=== PATIENT | male | born 1960 ===

== ENCOUNTER 2019-01-22 10:45 | Observation (INO) | payer OTHER ==
[2019-01-22] MEDS ORDERED: Sodium Chloride 0.9% 2.5 ML Syringe FLUSH PRN ×2 (10:47→10:48)
[2019-01-22] MEDS ORDERED: Sodium Chloride 0.9% 10 ML Syringe FLUSH PRN ×2 (10:47→10:48)
[2019-01-22] MEDS ORDERED: Sodium Chloride 0.9% 10 ML SDV IV PRN (10:48)
--- NOTE | 2019-01-22 10:57 | EDM.PDOC ---
<AntonioCristina Agarwal - Last Filed: 01/22/19 11:35> ED HPI GENERAL MEDICAL PROBLEM - General Chief Complaint: Neurological Problem Stated Complaint: STROKE CODE Time Seen by Provider: 01/22/19 10:47 - History of Present Illness INITIAL COMMENTS - FREE TEXT/NARRATIVE: This is Dr. Alvarez dictating an addendum note as I am the supervising physician on this case and I have been directly involved in this patient's care plan. I agree with history and physical as above and his stroke scale is only a 1. His time of onset is unclear and since he has been here his confusion has improved. Neurology was involved, Dr. Thomas, who will be on consult and does re-with us that this patient is not a candidate for TPA for multiple reasons including unknown time of onset/last well time, improvement of symptoms , and non-focality of his symptoms and more generalized confusional state. She knew to monitor his workup and plan on admission to the hospitalist. - Related Data Allergies Allergy/AdvReac Type Severity Reaction Status Date / Time No Known Allergies Allergy Verified 01/22/19 11:28 Home Meds: Home Meds Aspirin 1 tab PO DAILY 01/22/19 [History] Course - Vital Signs Last Recorded V/S: Last Vital Signs Temp 97.3 F 01/22/19 10:45 Pulse 65 01/22/19 10:49 Resp 18 01/22/19 10:49 BP 182/94 H 01/22/19 10:49 Pulse Ox 98 01/22/19 10:49 - Orders/Labs/Meds Orders: Active Orders 24 hr Category Date Time Status Admission Status [Patient Status] [ADT] Stat ADT 01/22/19 12:42 Ordered Assess Neurological Status [RC] ASDIRECTED Care 01/22/19 10:49 Active Bedrest [RC] ASDIRECTED Care 01/22/19 10:49 Active Blood Glucose Check, Bedside [RC] ONETIME Care 01/22/19 10:47 Active Cardiac Monitoring [RC] . DIRECTED Care 01/22/19 10:47 Active EKG Documentation Completion [RC] STAT Care 01/22/19 10:47 Active Height and Weight [RC] UPON Care 01/22/19 10:49 Active Initiate Acute Stroke Protocol [RC] STAT Care 01/22/19 10:49 Active NIH Stroke Scale [RC] ASDIRECTED Care 01/22/19 10:49 Active Nursing Bedside Swallow Screen [RC] ASDIRECTED Care 01/22/19 10:49 Active Oxygen Therapy [RC] ASDIRECTED Care 01/22/19 10:49 Active Oxygen Therapy, ED [RC] ASDIRECTED Care 01/22/19 10:47 Active Pulse Oximetry [RC] ASDIRECTED Care 01/22/19 10:47 Active Stroke Education, General [RC] Click to Edit Care 01/22/19 10:49 Active Vital Signs [RC] Q15M Care 01/22/19 10:49 Active CULTURE BLOOD [BC] Stat Lab 01/22/19 11:48 Received CULTURE BLOOD [BC] Stat Lab 01/22/19 11:55 Received DRUG SCREEN, URINE [URCHEM] Stat Lab 01/22/19 10:50 Ordered UA RFX TOMMY AND CULT IF INDIC [URIN] Stat Lab 01/22/19 10:48 Ordered Sodium Chloride 0.9% [Normal Saline] Med 01/22/19 10:48 Active 10 ml IV ASDIRECTED PRN Sodium Chloride 0.9% [Saline Flush] Med 01/22/19 10:47 Active 10 ml FLUSH ASDIRECTED PRN Sodium Chloride 0.9% [Saline Flush] Med 01/22/19 10:48 Active 10 ml FLUSH ASDIRECTED PRN Sodium Chloride 0.9% [Saline Flush] Med 01/22/19 10:47 Active 2.5 ml FLUSH ASDIRECTED PRN Sodium Chloride 0.9% [Saline Flush] Med 01/22/19 10:48 Active 2.5 ml FLUSH ASDIRECTED PRN Blood Culture x2 Reflex Set [OM.PC] Stat Oth 01/22/19 10:48 Ordered Peripheral IV Insertion Adult [OM.PC] Stat Oth 01/22/19 10:49 Ordered Peripheral IV Insertion Adult [OM.PC] Stat Oth 01/22/19 10:49 Ordered Saline Lock Insert [OM.PC] Stat Oth 01/22/19 10:47 Ordered Medication Orders Sodium Chloride (Saline Flush) 10 ml FLUSH ASDIRECTED PRN PRN Reason: Keep Vein Open Sodium Chloride (Saline Flush) 2.5 ml FLUSH ASDIRECTED PRN PRN Reason: Keep Vein Open Last Admin: 01/22/19 12:21 Dose: 2.5 ml Sodium Chloride (Saline Flush) 10 ml FLUSH ASDIRECTED PRN PRN Reason: Keep Vein Open Sodium Chloride (Saline Flush) 2.5 ml FLUSH ASDIRECTED PRN PRN Reason: Keep Vein Open Last Admin: 01/22/19 12:21 Dose: 2.5 ml Sodium Chloride (Normal Saline) 10 ml IV ASDIRECTED PRN PRN Reason: IV Use Labs: Laboratory Tests 01/22/19 01/22/19 01/22/19 Range/Units 11:11 11:11 11:11 WBC 6.62 (4.0-11.0) K/uL RBC 4.87 (4.50-5.90) M/uL Hgb 14.3 (13.0-17.0) g/dL Hct 41.0 (38.0-50.0) % MCV 84.2 (80.0-98.0) fL MCH 29.4 (27.0-32.0) pg MCHC 34.9 (31.0-37.0) g/dL RDW Std Deviation 41.8 (28.0-62.0) fl RDW Coeff of Noman 14 (11.0-15.0) % Plt Count 218 (150-400) K/uL MPV 9.80 (7.40-12.00) fL Neut % (Auto) 49.1 (48.0-80.0) % Lymph % (Auto) 34.6 (16.0-40.0) % [place] % (Auto) 8.9 (0.0-15.0) % Eos % (Auto) 7.1 H (0.0-7.0) % Baso % (Auto) 0.3 (0.0-1.5) % Neut # (Auto) 3.3 (1.4-5.7) K/uL Lymph # (Auto) 2.3 (0.6-2.4) K/uL [place] # (Auto) 0.6 (0.0-0.8) K/uL Eos # (Auto) 0.5 (0.0-0.7) K/uL Baso # (Auto) 0.0 (0.0-0.1) K/uL INR 0.97 APTT 23.7 (18.6-31.3) SEC Lactate 1.5 (0.20-2.00) mmol/L Sodium (136-148) mmol/L Potassium (3.5-5.1) mmol/L Chloride (98-107) mmol/L Carbon Dioxide (21.0-32.0) mmol/L BUN (7.0-18.0) mg/dL Creatinine (0.8-1.3) mg/dL Est Cr Clr Drug Dosing Estimated GFR (MDRD) ml/min Glucose (74-106) mg/dL Calcium (8.5-10.1) mg/dL Total Bilirubin (0.2-1.0) mg/dL AST (15-37) IU/L ALT (14-63) IU/L Alkaline Phosphatase (46-116) U/L Ammonia (19-54) ug/dL Troponin I (0.000-0.056) ng/mL Total Protein (6.4-8.2) g/dL Albumin (3.4-5.0) g/dL Globulin (2.6-4.0) g/dL Albumin/Globulin Ratio (0.9-1.6) Lipase (73-393) U/L TSH 3rd Generation (0.36-3.74) uIU/mL Ethyl Alcohol mg/dL 01/22/19 01/22/19 01/22/19 Range/Units 11:11 11:11 11:11 WBC (4.0-11.0) K/uL RBC (4.50-5.90) M/uL Hgb (13.0-17.0) g/dL Hct (38.0-50.0) % MCV (80.0-98.0) fL MCH (27.0-32.0) pg MCHC (31.0-37.0) g/dL RDW Std Deviation (28.0-62.0) fl RDW Coeff of Noman (11.0-15.0) % Plt Count (150-400) K/uL MPV (7.40-12.00) fL Neut % (Auto) (48.0-80.0) % Lymph % (Auto) (16.0-40.0) % [place] % (Auto) (0.0-15.0) % Eos % (Auto) (0.0-7.0) % Baso % (Auto) (0.0-1.5) % Neut # (Auto) (1.4-5.7) K/uL Lymph # (Auto) (0.6-2.4) K/uL [place] # (Auto) (0.0-0.8) K/uL Eos # (Auto) (0.0-0.7) K/uL Baso # (Auto) (0.0-0.1) K/uL INR APTT (18.6-31.3) SEC Lactate (0.20-2.00) mmol/L Sodium 140 (136-148) mmol/L Potassium 3.6 (3.5-5.1) mmol/L Chloride 105 (98-107) mmol/L Carbon Dioxide 24.5 (21.0-32.0) mmol/L BUN 14 (7.0-18.0) mg/dL Creatinine 0.9 (0.8-1.3) mg/dL Est Cr Clr Drug Dosing TNP Estimated GFR (MDRD) > 60.0 ml/min Glucose 101 (74-106) mg/dL Calcium 8.4 L (8.5-10.1) mg/dL Total Bilirubin 0.2 (0.2-1.0) mg/dL AST 23 (15-37) IU/L ALT 23 (14-63) IU/L Alkaline Phosphatase 102 (46-116) U/L Ammonia 126 H (19-54) ug/dL Troponin I < 0.050 (0.000-0.056) ng/mL Total Protein 7.8 (6.4-8.2) g/dL Albumin 4.0 (3.4-5.0) g/dL Globulin 3.8 (2.6-4.0) g/dL Albumin/Globulin Ratio 1.1 (0.9-1.6) Lipase 80 (73-393) U/L TSH 3rd Generation 1.07 (0.36-3.74) uIU/mL Ethyl Alcohol < 3.0 mg/dL Meds: Medications Generic Name Dose Route Start Last Admin Trade Name Freq PRN Reason Stop Dose Admin Sodium Chloride 10 ml 01/22/19 10:47 Saline Flush FLUSH ASDIRECTED PRN Keep Vein Open Sodium Chloride 2.5 ml 01/22/19 10:47 01/22/19 12:21 Saline Flush FLUSH 2.5 ml ASDIRECTED PRN Administration Keep Vein Open Sodium Chloride 10 ml 01/22/19 10:48 Saline Flush FLUSH ASDIRECTED PRN Keep Vein Open Sodium Chloride 2.5 ml 01/22/19 10:48 01/22/19 12:21 Saline Flush FLUSH 2.5 ml ASDIRECTED PRN Administration Keep Vein Open Sodium Chloride 10 ml 01/22/19 10:48 Normal Saline IV ASDIRECTED PRN IV Use Discontinued Medications Generic Name Dose Route Start Last Admin Trade Name Fam PRN Reason Stop Dose Admin Aspirin 324 mg 01/22/19 11:44 01/22/19 12:20 Aspirin PO 01/22/19 11:45 324 mg ONETIME ONE Administration Departure - Departure Disposition: Refer to Observation Clinical Impression: Increased ammonia level Altered mental status Qualifiers: Altered mental status type: unspecified Qualified Code(s): R41.82 - Altered mental status, unspecified Hypertension Qualifiers: Hypertension type: unspecified Qualified Code(s): I10 - Essential (primary) hypertension - Discharge Information Referrals: PCP,None [Primary Care Provider] - Forms: ED Department Discharge - My Orders Last 24 Hours: My Active Orders 01/22/19 10:48 UA RFX TOMMY AND CULT IF INDIC [URIN] Stat Sodium Chloride 0.9% [Normal Saline] 10 ml IV ASDIRECTED PRN Sodium Chloride 0.9% [Saline Flush] 10 ml FLUSH ASDIRECTED PRN Sodium Chloride 0.9% [Saline Flush] 2.5 ml FLUSH ASDIRECTED PRN Blood Culture x2 Reflex Set [OM.PC] Stat 01/22/19 10:49 Assess Neurological Status [RC] ASDIRECTED Bedrest [RC] ASDIRECTED Height and Weight [RC] UPON Initiate Acute Stroke Protocol [RC] STAT NIH Stroke Scale [RC] ASDIRECTED Nursing Bedside Swallow Screen [RC] ASDIRECTED Oxygen Therapy [RC] ASDIRECTED Stroke Education, General [RC] Click to Edit Vital Signs [RC] Q15M Peripheral IV Insertion Adult [OM.PC] Stat Peripheral IV Insertion Adult [OM.PC] Stat 01/22/19 10:50 DRUG SCREEN, URINE [URCHEM] Stat 01/22/19 11:48 CULTURE BLOOD [BC] Stat 01/22/19 11:55 CULTURE BLOOD [BC] Stat 01/22/19 12:42 Admission Status [Patient Status] [ADT] Stat - Assessment/Plan Last 24 Hours: My Active Orders 01/22/19 10:48 UA RFX TOMMY AND CULT IF INDIC [URIN] Stat Sodium Chloride 0.9% [Normal Saline] 10 ml IV ASDIRECTED PRN Sodium Chloride 0.9% [Saline Flush] 10 ml FLUSH ASDIRECTED PRN Sodium Chloride 0.9% [Saline Flush] 2.5 ml FLUSH ASDIRECTED PRN Blood Culture x2 Reflex Set [OM.PC] Stat 01/22/19 10:49 Assess Neurological Status [RC] ASDIRECTED Bedrest [RC] ASDIRECTED Height and Weight [RC] UPON Initiate Acute Stroke Protocol [RC] STAT NIH Stroke Scale [RC] ASDIRECTED Nursing Bedside Swallow Screen [RC] ASDIRECTED Oxygen Therapy [RC] ASDIRECTED Stroke Education, General [RC] Click to Edit Vital Signs [RC] Q15M Peripheral IV Insertion Adult [OM.PC] Stat Peripheral IV Insertion Adult [OM.PC] Stat 01/22/19 10:50 DRUG SCREEN, URINE [URCHEM] Stat 01/22/19 11:48 CULTURE BLOOD [BC] Stat 01/22/19 11:55 CULTURE BLOOD [BC] Stat 01/22/19 12:42 Admission Status [Patient Status] [ADT] Stat <AdánSissy - Last Filed: 01/22/19 12:45> ED HPI GENERAL MEDICAL PROBLEM - General Source of Information: Reports: Patient, Other (co worker) History Limitations: Reports: No Limitations - History of Present Illness INITIAL COMMENTS - FREE TEXT/NARRATIVE: HISTORY AND PHYSICAL: History of present illness: Patient is a 58-year-old male presents to the ED today with his co-worker with concern of confusion. Patient's coworker states that patient did not show up for work this morning which was unusual for him so they had called patient. Coworker states that at that time he said he wasn't feeling well so was coming to be evaluated in the ED. Coworker states he called back a little while later to see how things were doing and states that patient was confused and in the parking lot of the hospital and unsure where he was or why he was there.Upon arrival to the ED, patient is confused and unsure why he is here. Review of systems: As per history of present illness and below otherwise all systems reviewed and negative. Past medical history: As per history of present illness and as reviewed below otherwise noncontributory. Surgical history: As per history of present illness and as reviewed below otherwise noncontributory. Social history: See social history for further information Family history: As per history of present illness and as reviewed below otherwise noncontributory. Physical exam: General: Patient is alert, oriented, and in no acute distress. Patient laying comfortably on exam table. HEENT: Atraumatic, normocephalic, pupils equal and reactive bilaterally, negative for conjunctival pallor or scleral icterus, mucous membranes moist, TMs normal bilaterally, throat clear, neck supple, nontender, trachea midline. No drooling or trismus noted. No meningeal signs. No hot potato voice noted. Lungs: Clear to auscultation, breath sounds equal bilaterally, chest nontender. Heart: S1S2, regular rate and rhythm without overt murmur Abdomen: Soft, nondistended, nontender. Negative for masses or hepatosplenomegaly. Negative for costovertebral tenderness. Pelvis: Stable nontender. Genitourinary: Deferred. Rectal: Deferred. Skin: Intact, warm, dry. No lesions or rashes noted. Extremities: Atraumatic, negative for cords or calf pain. Neurovascular unremarkable. No obvious deformities of the bilateral upper and lower extremities. Patient does have full range of motion of bilateral upper and lower extremities but does have pain with range of motion of the right shoulder. Neuro: Awake, alert, oriented. Cranial nerves II through XII unremarkable. Cerebellum unremarkable. Motor and sensory unremarkable throughout. Exam nonfocal. Notes: Stroke code was called upon arrival to the ED. Dr. Alvarez directly involved in patient care. Last known time well is unknown. NIH score of 1. Patient confusion does improve following CT scan and does recall falling a few days ago and since is having right shoulder pain. Dr. Thomas, neurology rehabilitation services aide, consulted on patient and does not believe that patient is a TPA candidate at this time. Dr. Mckenna consulted on patient and will admit to observation with telemetry. Voices understanding and is agreeable to plan of care. Denies any further questions or concerns at this time. Diagnostics: CBC, CMP, UA, EKG, chest x-ray, troponin, PT/INR, head CT, lactate, blood cultures 2, ethanol, urine drug screen, ammonia, shoulder XR, TSH Therapeutics: Saline lock, ASA Impression: Altered Mental Status, improving Elevated ammonia Hypertension Plan: Admit to observation of Dr. Mckenna with telemetry Definitive disposition and diagnosis as appropriate pending reevaluation and review of above. ED ROS GENERAL - Review of Systems Review Of Systems: Comprehensive ROS is negative, except as noted in HPI. ED EXAM, GENERAL - Physical Exam Exam: See Below (see dictation) Course - Vital Signs Last Recorded V/S: Last Vital Signs Temp 97.3 F 01/22/19 10:45 Pulse 65 01/22/19 10:49 Resp 18 01/22/19 10:49 BP 182/94 H 01/22/19 10:49 Pulse Ox 98 01/22/19 10:49 - Orders/Labs/Meds Labs: Laboratory Tests 01/22/19 01/22/19 01/22/19 Range/Units 11:11 11:11 11:11 WBC 6.62 (4.0-11.0) K/uL RBC 4.87 (4.50-5.90) M/uL Hgb 14.3 (13.0-17.0) g/dL Hct 41.0 (38.0-50.0) % MCV 84.2 (80.0-98.0) fL MCH 29.4 (27.0-32.0) pg MCHC 34.9 (31.0-37.0) g/dL RDW Std Deviation 41.8 (28.0-62.0) fl RDW Coeff of Noman 14 (11.0-15.0) % Plt Count 218 (150-400) K/uL MPV 9.80 (7.40-12.00) fL Neut % (Auto) 49.1 (48.0-80.0) % Lymph % (Auto) 34.6 (16.0-40.0) % [place] % (Auto) 8.9 (0.0-15.0) % Eos % (Auto) 7.1 H (0.0-7.0) % Baso % (Auto) 0.3 (0.0-1.5) % Neut # (Auto) 3.3 (1.4-5.7) K/uL Lymph # (Auto) 2.3 (0.6-2.4) K/uL [place] # (Auto) 0.6 (0.0-0.8) K/uL Eos # (Auto) 0.5 (0.0-0.7) K/uL Baso # (Auto) 0.0 (0.0-0.1) K/uL INR 0.97 APTT 23.7 (18.6-31.3) SEC Lactate 1.5 (0.20-2.00) mmol/L Sodium (136-148) mmol/L Potassium (3.5-5.1) mmol/L Chloride (98-107) mmol/L Carbon Dioxide (21.0-32.0) mmol/L BUN (7.0-18.0) mg/dL Creatinine (0.8-1.3) mg/dL Est Cr Clr Drug Dosing Estimated GFR (MDRD) ml/min Glucose (74-106) mg/dL Calcium (8.5-10.1) mg/dL Total Bilirubin (0.2-1.0) mg/dL AST (15-37) IU/L ALT (14-63) IU/L Alkaline Phosphatase (46-116) U/L Ammonia (19-54) ug/dL Troponin I (0.000-0.056) ng/mL Total Protein (6.4-8.2) g/dL Albumin (3.4-5.0) g/dL Globulin (2.6-4.0) g/dL Albumin/Globulin Ratio (0.9-1.6) Lipase (73-393) U/L TSH 3rd Generation (0.36-3.74) uIU/mL Ethyl Alcohol mg/dL 01/22/19 01/22/19 01/22/19 Range/Units 11:11 11:11 11:11 WBC (4.0-11.0) K/uL RBC (4.50-5.90) M/uL Hgb (13.0-17.0) g/dL Hct (38.0-50.0) % MCV (80.0-98.0) fL MCH (27.0-32.0) pg MCHC (31.0-37.0) g/dL RDW Std Deviation (28.0-62.0) fl RDW Coeff of Noman (11.0-15.0) % Plt Count (150-400) K/uL MPV (7.40-12.00) fL Neut % (Auto) (48.0-80.0) % Lymph % (Auto) (16.0-40.0) % [place] % (Auto) (0.0-15.0) % Eos % (Auto) (0.0-7.0) % Baso % (Auto) (0.0-1.5) % Neut # (Auto) (1.4-5.7) K/uL Lymph # (Auto) (0.6-2.4) K/uL [place] # (Auto) (0.0-0.8) K/uL Eos # (Auto) (0.0-0.7) K/uL Baso # (Auto) (0.0-0.1) K/uL INR APTT (18.6-31.3) SEC Lactate (0.20-2.00) mmol/L Sodium 140 (136-148) mmol/L Potassium 3.6 (3.5-5.1) mmol/L Chloride 105 (98-107) mmol/L Carbon Dioxide 24.5 (21.0-32.0) mmol/L BUN 14 (7.0-18.0) mg/dL Creatinine 0.9 (0.8-1.3) mg/dL Est Cr Clr Drug Dosing TNP Estimated GFR (MDRD) > 60.0 ml/min Glucose 101 (74-106) mg/dL Calcium 8.4 L (8.5-10.1) mg/dL Total Bilirubin 0.2 (0.2-1.0) mg/dL AST 23 (15-37) IU/L ALT 23 (14-63) IU/L Alkaline Phosphatase 102 (46-116) U/L Ammonia 126 H (19-54) ug/dL Troponin I < 0.050 (0.000-0.056) ng/mL Total Protein 7.8 (6.4-8.2) g/dL Albumin 4.0 (3.4-5.0) g/dL Globulin 3.8 (2.6-4.0) g/dL Albumin/Globulin Ratio 1.1 (0.9-1.6) Lipase 80 (73-393) U/L TSH 3rd Generation 1.07 (0.36-3.74) uIU/mL Ethyl Alcohol < 3.0 mg/dL Departure - Departure Time of Disposition: 12:44
--- NOTE | 2019-01-22 11:06 | CT ---
Indication: Confusion technique noncontrast head CT scan. No comparison studies are available. FINDINGS: Axial noncontrast images through the brain parenchyma demonstrates no acute intracranial hemorrhage or mass. No midline shift. No abnormal extra-axial air fluid collections are seen. Paranasal sinuses, mastoid air cells, skull and scalp appear unremarkable. IMPRESSION: No acute intracranial hemorrhage or mass. Results relayed to referring physician by [facility] staff on 01/22/2019 at 11:10 a.m. Please note that all CT scans at this facility use dose modulation, iterative reconstruction, and/or weight-based dosing when appropriate to reduce radiation dose to as low as reasonably achievable. Dictated by Karly Price MD @ Jan 22 2019 11:03AM Signed by Dr. Karly Price @ Jan 22 2019 11:06AM
[2019-01-22] MEDS ORDERED: Aspirin 81 MG Tab.Chew PO ONE (11:44)
[2019-01-22 12:02] LABS: CARBON DIOXIDE,CO2 24.5 mmol/L (21.0-32.0); CHLORIDE,CL 105 mmol/L (98-107); POTASSIUM,K 3.6 mmol/L (3.5-5.1); SODIUM,NA 140 mmol/L (136-148)
[2019-01-22 12:32] LABS: BLOOD UREA NITROGEN,BUN 14 mg/dL (7.0-18.0); GLUCOSE RANDOM 101 mg/dL (74-106)
--- NOTE | 2019-01-22 12:35 | CR ---
Chest: Portable view of the chest was obtained. Comparison: No prior chest imaging is available. Heart size and mediastinum are within normal limits for portable technique. Lungs are clear. Bony structures are grossly intact. Impression: Nothing acute is seen on portable chest x-ray. Diagnostic code #1 This report was dictated in [place] Standard Time MTDD
--- NOTE | 2019-01-22 12:36 | CR ---
Right shoulder: Three views of the right shoulder were obtained. Comparison: Previous right shoulder exam is not available. Glenohumeral joint and acromioclavicular joint is within normal limits. No fracture, dislocation or other bony abnormality is appreciated. Impression: No abnormality is appreciated on right shoulder study. Diagnostic code #1 This report was dictated in [place] [employer] [place] MTDD
[2019-01-22] MEDS ORDERED: Albuterol/Ipratropium 3.0-0.5 MG/3 ML Neb Soln NEB PRN (13:54)
[2019-01-22] MEDS ORDERED: Ibuprofen 200 MG Tab PO PRN (13:54)
--- NOTE | 2019-01-22 13:54 | PCM.HP.2 ---
H&P History of Present Illness - General Date of Service: 01/22/19 Admit Problem/Dx: Admission Diagnosis/Problem Admission Diagnosis/Problem Altered mental status - History of Present Illness Initial Comments - Free Text/Narative: Patient is a 58-year-old male presents to the ED today with his co-worker with concern of confusion. Reportedly patient didn't show up at work today which his coworker found unusual for the patient, so he called the patient who told him he is going to the ER as he doesn't feel well. Patient was on his way to ER and in parking lot he got confused and wasn't sure why he was in parking lot. His coworker drove over and was able to get him to ER. Upon arrival stroke code was called, CT scan of head was obtained which was negative. Following CT scan, mentation improved. Neurology recommended against TPA given patients lack of focal symptoms, improvement of mentation and unknown time of onset. Coworker states he called back a little while later to see how things were doing and states that patient was confused and in the parking lot of the hospital and unsure where he was or why he was there.Upon arrival to the ED, patient is confused and unsure why he is here. Patient is being admitted for further management. Onset of Symptoms: Reports: Today Duration of Symptoms: Reports: Hour(s): Improves with: Reports: None Worsens with: Reports: None - Related Data Allergies/Adverse Reactions: Allergies Allergy/AdvReac Type Severity Reaction Status Date / Time No Known Allergies Allergy Verified 01/22/19 11:28 Home Medications: Home Meds Aspirin 1 tab PO DAILY 01/22/19 [History] Past Medical History - Past Health History Medical/Surgical History: Denies Medical/Surgical History Cardiovascular History: Reports: Hypertension - Infectious Disease History Infectious Disease History: Reports: Chicken Pox - Past Surgical History GI Surgical History: Reports: Cholecystectomy Social & Family History - Family History Family Medical History: Noncontributory - Tobacco Use Smoking Status *Q: Current Every Day Smoker Years of Tobacco use: 1 Packs/Tins Daily: 0.3 - Recreational Drug Use Recreational Drug Use: No H&P Review of Systems - Review of Systems: Review Of Systems: See Below General: Denies: Fever, Chills, Malaise HEENT: Denies: Dysphasia, Ear Pain Pulmonary: Denies: Shortness of Breath, Wheezing, Pleuritic Chest Pain Cardiovascular: Denies: Chest Pain, Palpitations, Dyspnea on Exertion Gastrointestinal: Denies: Abdominal Pain, Anorexia, Black Stool Genitourinary: Denies: Dysuria, Frequency, Burning Musculoskeletal: Denies: Neck Pain, Shoulder Pain, Arm Pain Skin: Denies: Cyanosis, Jaundice, Mottled, Pallor Psychiatric: Denies: Confusion, Depression, Mood Lability, Anxiety Neurological: Denies: Confusion, Dizziness, Headache, Numbness Hematologic/Lymphatic: Denies: Anemia, Easy Bleeding, Easy Bruising Exam - Exam Exam: See Below - Vital Signs Vital Signs: Last Vital Signs Temp 36.3 C 01/22/19 10:45 Pulse 65 01/22/19 10:49 Resp 18 01/22/19 10:49 BP 182/94 H 01/22/19 10:49 Pulse Ox 98 01/22/19 10:49 Weight: 116.12 kg - Exam General: Alert, Oriented, Cooperative Neck: Supple, Trachea Midline Lungs: Clear to Auscultation, Normal Respiratory Effort Cardiovascular: Regular Rate, Regular Rhythm, Normal S1, Normal S2 GI/Abdominal Exam: Normal Bowel Sounds, Soft, Non-Tender Peripheral Pulses: 3+: Dorsalis Pedis (L), Dorsalis Pedis (R) Neurological: Cranial Nerves Intact Neuro Extensive - Mental Status: Alert, Oriented x3, Normal Cognition Neuro Extensive - Motor, Sensory, Reflexes: CN II-XII Intact, Normal Gait, Normal Reflexes DTR: 2+: Patella (L), Patella (R) - Patient Data Lab Results Last 24 hrs: Laboratory Results - last 24 hr 01/22/19 01/22/19 01/22/19 Range/Units 11:11 11:11 11:11 WBC 6.62 (4.0-11.0) K/uL RBC 4.87 (4.50-5.90) M/uL Hgb 14.3 (13.0-17.0) g/dL Hct 41.0 (38.0-50.0) % MCV 84.2 (80.0-98.0) fL MCH 29.4 (27.0-32.0) pg MCHC 34.9 (31.0-37.0) g/dL RDW Std Deviation 41.8 (28.0-62.0) fl RDW Coeff of Noman 14 (11.0-15.0) % Plt Count 218 (150-400) K/uL MPV 9.80 (7.40-12.00) fL Neut % (Auto) 49.1 (48.0-80.0) % Lymph % (Auto) 34.6 (16.0-40.0) % Lynn % (Auto) 8.9 (0.0-15.0) % Eos % (Auto) 7.1 H (0.0-7.0) % Baso % (Auto) 0.3 (0.0-1.5) % Neut # (Auto) 3.3 (1.4-5.7) K/uL Lymph # (Auto) 2.3 (0.6-2.4) K/uL Lynn # (Auto) 0.6 (0.0-0.8) K/uL Eos # (Auto) 0.5 (0.0-0.7) K/uL Baso # (Auto) 0.0 (0.0-0.1) K/uL INR 0.97 APTT 23.7 (18.6-31.3) SEC Lactate 1.5 (0.20-2.00) mmol/L Sodium (136-148) mmol/L Potassium (3.5-5.1) mmol/L Chloride (98-107) mmol/L Carbon Dioxide (21.0-32.0) mmol/L BUN (7.0-18.0) mg/dL Creatinine (0.8-1.3) mg/dL Est Cr Clr Drug Dosing Estimated GFR (MDRD) ml/min Glucose (74-106) mg/dL Calcium (8.5-10.1) mg/dL Total Bilirubin (0.2-1.0) mg/dL AST (15-37) IU/L ALT (14-63) IU/L Alkaline Phosphatase (46-116) U/L Ammonia (19-54) ug/dL Troponin I (0.000-0.056) ng/mL Total Protein (6.4-8.2) g/dL Albumin (3.4-5.0) g/dL Globulin (2.6-4.0) g/dL Albumin/Globulin Ratio (0.9-1.6) Lipase (73-393) U/L TSH 3rd Generation (0.36-3.74) uIU/mL Ethyl Alcohol mg/dL 01/22/19 01/22/19 01/22/19 Range/Units 11:11 11:11 11:11 WBC (4.0-11.0) K/uL RBC (4.50-5.90) M/uL Hgb (13.0-17.0) g/dL Hct (38.0-50.0) % MCV (80.0-98.0) fL MCH (27.0-32.0) pg MCHC (31.0-37.0) g/dL RDW Std Deviation (28.0-62.0) fl RDW Coeff of Noman (11.0-15.0) % Plt Count (150-400) K/uL MPV (7.40-12.00) fL Neut % (Auto) (48.0-80.0) % Lymph % (Auto) (16.0-40.0) % Lynn % (Auto) (0.0-15.0) % Eos % (Auto) (0.0-7.0) % Baso % (Auto) (0.0-1.5) % Neut # (Auto) (1.4-5.7) K/uL Lymph # (Auto) (0.6-2.4) K/uL Lynn # (Auto) (0.0-0.8) K/uL Eos # (Auto) (0.0-0.7) K/uL Baso # (Auto) (0.0-0.1) K/uL INR APTT (18.6-31.3) SEC Lactate (0.20-2.00) mmol/L Sodium 140 (136-148) mmol/L Potassium 3.6 (3.5-5.1) mmol/L Chloride 105 (98-107) mmol/L Carbon Dioxide 24.5 (21.0-32.0) mmol/L BUN 14 (7.0-18.0) mg/dL Creatinine 0.9 (0.8-1.3) mg/dL Est Cr Clr Drug Dosing TNP Estimated GFR (MDRD) > 60.0 ml/min Glucose 101 (74-106) mg/dL Calcium 8.4 L (8.5-10.1) mg/dL Total Bilirubin 0.2 (0.2-1.0) mg/dL AST 23 (15-37) IU/L ALT 23 (14-63) IU/L Alkaline Phosphatase 102 (46-116) U/L Ammonia 126 H (19-54) ug/dL Troponin I < 0.050 (0.000-0.056) ng/mL Total Protein 7.8 (6.4-8.2) g/dL Albumin 4.0 (3.4-5.0) g/dL Globulin 3.8 (2.6-4.0) g/dL Albumin/Globulin Ratio 1.1 (0.9-1.6) Lipase 80 (73-393) U/L TSH 3rd Generation 1.07 (0.36-3.74) uIU/mL Ethyl Alcohol < 3.0 mg/dL Result Diagrams: 01/22/19 11:11 01/22/19 11:11 *Q Meaningful Use (ADM) - VTE Risk Assess *Q Each Risk Factor Represents 2 Points: Age 60 - 74 Years Total Score 2 Point Risk Factors: 2 - Problem List (1) Altered mental status SNOMED Code(s): 518939582 ICD Code: R41.82 - ALTERED MENTAL STATUS, UNSPECIFIED Status: Acute Current Visit: Yes Qualifiers: Altered mental status type: unspecified Qualified Code(s): R41.82 - Altered mental status, unspecified (2) Hypertension SNOMED Code(s): 14641058 ICD Code: I10 - ESSENTIAL (PRIMARY) HYPERTENSION Status: Acute Current Visit: Yes Qualifiers: Hypertension type: unspecified Qualified Code(s): I10 - Essential (primary ) hypertension (3) Increased ammonia level SNOMED Code(s): 159252901, 359251191, 156737706 ICD Code: R79.89 - OTHER SPECIFIED ABNORMAL FINDINGS OF BLOOD CHEMISTRY Status: Acute Current Visit: Yes Problem List Initiated/Reviewed/Updated: Yes Orders Last 24hrs: Active Orders 24 hr Category Date Time Status Admission Status [Patient Status] [ADT] Stat ADT 01/22/19 12:42 Active Assess Neurological Status [RC] ASDIRECTED Care 01/22/19 10:49 Active Bedrest [RC] ASDIRECTED Care 01/22/19 10:49 Active Blood Glucose Check, Bedside [RC] ONETIME Care 01/22/19 10:47 Active Cardiac Monitoring [RC] . DIRECTED Care 01/22/19 10:47 Active EKG Documentation Completion [RC] STAT Care 01/22/19 10:47 Active Height and Weight [RC] UPON Care 01/22/19 10:49 Active Initiate Acute Stroke Protocol [RC] STAT Care 01/22/19 10:49 Active NIH Stroke Scale [RC] ASDIRECTED Care 01/22/19 10:49 Active Nursing Bedside Swallow Screen [RC] ASDIRECTED Care 01/22/19 10:49 Active Oxygen Therapy [RC] ASDIRECTED Care 01/22/19 10:49 Active Oxygen Therapy, ED [RC] ASDIRECTED Care 01/22/19 10:47 Active Pulse Oximetry [RC] ASDIRECTED Care 01/22/19 10:47 Active Stroke Education, General [RC] Click to Edit Care 01/22/19 10:49 Active Vital Signs [RC] Q15M Care 01/22/19 10:49 Active CULTURE BLOOD [BC] Stat Lab 01/22/19 11:48 Received CULTURE BLOOD [BC] Stat Lab 01/22/19 11:55 Received DRUG SCREEN, URINE [URCHEM] Stat Lab 01/22/19 10:50 Ordered GLYCOSYLATED HEMOGLOBIN,HGBA1C [CHEM] Routine Lab 01/22/19 11:11 Received LIPID PANEL [CHEM] AM Lab 01/23/19 05:11 Ordered UA RFX TOMMY AND CULT IF INDIC [URIN] Stat Lab 01/22/19 10:48 Ordered Aspirin Med 01/23/19 09:00 Active 81 mg PO DAILY Sodium Chloride 0.9% [Normal Saline] Med 01/22/19 10:48 Active 10 ml IV ASDIRECTED PRN Sodium Chloride 0.9% [Saline Flush] Med 01/22/19 10:47 Active 10 ml FLUSH ASDIRECTED PRN Sodium Chloride 0.9% [Saline Flush] Med 01/22/19 10:48 Active 10 ml FLUSH ASDIRECTED PRN Sodium Chloride 0.9% [Saline Flush] Med 01/22/19 10:47 Active 2.5 ml FLUSH ASDIRECTED PRN Sodium Chloride 0.9% [Saline Flush] Med 01/22/19 10:48 Active 2.5 ml FLUSH ASDIRECTED PRN atorvaSTATin [Lipitor] Med 01/22/19 21:00 Active 40 mg PO BEDTIME Blood Culture x2 Reflex Set [OM.PC] Stat Ot 01/22/19 10:48 Ordered Peripheral IV Insertion Adult [OM.PC] Stat Ot 01/22/19 10:49 Ordered Peripheral IV Insertion Adult [OM.PC] Stat Ot 01/22/19 10:49 Ordered Saline Lock Insert [OM.PC] Stat Ot 01/22/19 10:47 Ordered Medication Orders Aspirin (Aspirin) 81 mg PO DAILY JUAN Atorvastatin Calcium (Lipitor) 40 mg PO BEDTIME JUAN Sodium Chloride (Saline Flush) 10 ml FLUSH ASDIRECTED PRN PRN Reason: Keep Vein Open Sodium Chloride (Saline Flush) 2.5 ml FLUSH ASDIRECTED PRN PRN Reason: Keep Vein Open Last Admin: 01/22/19 12:21 Dose: 2.5 ml Sodium Chloride (Saline Flush) 10 ml FLUSH ASDIRECTED PRN PRN Reason: Keep Vein Open Sodium Chloride (Saline Flush) 2.5 ml FLUSH ASDIRECTED PRN PRN Reason: Keep Vein Open Last Admin: 01/22/19 12:21 Dose: 2.5 ml Sodium Chloride (Normal Saline) 10 ml IV ASDIRECTED PRN PRN Reason: IV Use Assessment/Plan Comment:: A/P: 58 y/o M with PMH of HTN comes in with AMS CT scan head was negative for any acute bleeding/ infarct UDS negative, Labs benign NIHSS score 1 in ER Neurology was consulted TPA was held due to non focal symptoms and improvement of symptoms Will obtain MRI/MRA Will start ASA, statin Obtain lipid profile, HbA1c, TSH,2D ECHO, US carotid Neurology consult NIHSS scale per protocol
[2019-01-22] MEDS ORDERED: Labetalol 100 MG/20 ML MDV IVPUSH PRN (14:01)
[2019-01-22 14:33] LABS: HEMOGLOBIN A1C 6.1 % (4.5-6.2)
[2019-01-22] MEDS ORDERED: traMADol 50 MG Tab PO ONE (19:10)
[2019-01-22] MEDS ORDERED: atorvaSTATin 40 MG Tab PO SCH (21:00)
[2019-01-22] MEDS: Acetaminophen 325 MG Tab PO PRN (22:19)
[2019-01-23] MEDS ORDERED: traMADol 50 MG Tab PO ONE (05:48)
[2019-01-23] MEDS: Acetaminophen 325 MG Tab PO PRN (07:38)
[2019-01-23] MEDS ORDERED: Aspirin 81 MG Tab.Chew PO SCH (09:00)
[2019-01-23] MEDS ORDERED: Fish Oil/Omega-3 Fatty Acids 1 Gm Cap PO SCH (09:00)
--- NOTE | 2019-01-23 12:08 | MR ---
INDICATION: 58-year-old male. Altered mental status. TECHNIQUE: Sagittal T1 axial FLAIR T2 diffusion-weighted and susceptibility weighted images of the brain. [id number] magnetic resonance at the [place] arteries. COMPARISON: Brain dated 01/22/2019. FINDINGS: MRI brain: The lateral 3rd and 4th ventricles are normal in size and shape. There are no areas of diffusion restriction to suggest acute ischemic infarction there is no mass effect. There is no evidence of intracranial hemorrhage. There are a few tiny areas of FLAIR and T2 signal hyperintensity within subcortical cerebral white matter. These findings are likely due to chronic microvascular ischemia but are nonspecific. The brainstem and cerebellum appear normal. The orbits sella turc[place] paranasal sinuses and skullbase are unremarkable. MRA [place]: The intracranial segments of the internal carotid arteries and basilar artery appear widely patent. There is hypoplastic right A-1 segment and origin of the right posterior cerebral artery. The anterior middle and posterior cerebral arteries and proximal branches are otherwise unremarkable. Distal left vertebral artery is hypoplastic. The an no evidence of an aneurysm over 3 mm. No high-flow arteriovenous malformation. No high-grade intracranial stenosis. IMPRESSION: 1. There is no evidence of acute infarction, intracranial hemorrhage or mass. 2. Mild chronic microvascular ischemic changes within the cerebral white matter. 3. No large vessel occlusion or high-grade stenosis or aneurysm is seen. Congenital variant arterial anatomy as described. Dictated by Nik Danielson MD @ 01/23/2019 12:05:46 PM Dictated by: Nik Danielson MD @ 01/23/2019 12:06:05 (Electronically Signed)
--- NOTE | 2019-01-23 12:21 | PCM.DCSUM1 ---
Discharge Summary - Hospital Course Brief History: Patient is a 58-year-old male presents to the ED today with his co-worker with concern of confusion. Reportedly patient didn't show up at work today which his coworker found unusual for the patient, so he called the patient who told him he is going to the ER as he doesn't feel well. Patient was on his way to ER and in parking lot he got confused and wasn't sure why he was in parking lot. His coworker drove over and was able to get him to ER. Upon arrival stroke code was called, CT scan of head was obtained which was negative. Following CT scan, mentation improved. Neurology recommended against TPA given patients lack of focal symptoms, improvement of mentation and unknown time of onset. Coworker states he called back a little while later to see how things were doing and states that patient was confused and in the parking lot of the hospital and unsure where he was or why he was there.Upon arrival to the ED, patient is confused and unsure why he is here. Patient is being admitted for further management. Diagnosis: Stroke: No - Discharge Data Discharge Date: 01/23/19 Discharge Disposition: Home, Self-Care 01 Condition: Stable - Referral to Home Health Primary Care Physician: PCP None - Patient Instructions Diet: Heart Healthy Diet Activity: As Tolerated, No Strenuous Activities Showering/Bathing: May Shower Notify Provider of: Fever, Increased Pain, Swelling and Redness, Drainage, Nausea and/or Vomiting - Discharge Plan *PRESCRIPTION DRUG MONITORING PROGRAM REVIEWED*: Not Applicable *COPY OF PRESCRIPTION DRUG MONITORING REPORT IN PATIENT ULYSSES: Not Applicable Home Medications: Home Meds Acetaminophen/Caffeine [Excedrin Tension Headache Cplt] 1 tab PO . NEEDED PRN 01/22/19 [History] Aspirin 81 mg PO DAILY 01/22/19 [History] Multivitamin [Daily Carina] 1 tab PO DAILY 01/22/19 [History] Oxygen Therapy Mode: Room Air Patient Handouts: Confusion Referrals: [facility] [Outside] Justo Flores MD [Resident] - 01/30/19 10:15 am - Discharge Summary/Plan Comment DC Time >30 min.: No Discharge Summary/Plan Comment: Admitting Diagnoses: AMS Discharge Diagnoses: AMS- spontaneously resolved. Ishan was admitted and monitored of AMS. This spontaneously resolved. He was worked up for TIA/Stroke, no evidence of this noted. Neurology was consulted. Labwork otherwise unremarkable. Ammonia elevated on admission. No alcohol abuse or home medications. Consider work for this as outpatient since AMS resolved. I spoke with his daughter via telephone and she agreed with treatment and discharge. Ishan will be discharged home today. Continue home medications. He is to return to ED or clinic if concerns should arise. E[facility] pending. - Patient Data Vitals - Most Recent: Last Vital Signs Temp 97.4 F 01/23/19 07:42 Pulse 59 L 01/23/19 07:42 Resp 19 01/23/19 07:42 BP 108/58 L 01/23/19 07:42 Pulse Ox 96 01/23/19 07:42 Weight - Most Recent: 120.293 kg I&O - Last 24 hours: Intake & Output 01/22/19 01/23/19 01/23/19 22:59 06:59 14:59 Intake Total 250 Output Total 300 Balance -50 Lab Results - Last 24 hrs: Laboratory Results - last 24 hr 01/22/19 01/22/19 01/22/19 Range/Units 11:11 11:11 11:11 Sodium 140 (136-148) mmol/L Potassium 3.6 (3.5-5.1) mmol/L Chloride 105 (98-107) mmol/L Carbon Dioxide 24.5 (21.0-32.0) mmol/L BUN 14 (7.0-18.0) mg/dL Creatinine 0.9 (0.8-1.3) mg/dL Est Cr Clr Drug Dosing TNP Estimated GFR (MDRD) > 60.0 ml/min Glucose 101 (74-106) mg/dL Hemoglobin A1c 6.1 (4.5-6.2) % Calcium 8.4 L (8.5-10.1) mg/dL Total Bilirubin 0.2 (0.2-1.0) mg/dL AST 23 (15-37) IU/L ALT 23 (14-63) IU/L Alkaline Phosphatase 102 (46-116) U/L Ammonia 126 H (19-54) ug/dL Troponin I < 0.050 (0.000-0.056) ng/mL Total Protein 7.8 (6.4-8.2) g/dL Albumin 4.0 (3.4-5.0) g/dL Globulin 3.8 (2.6-4.0) g/dL Albumin/Globulin Ratio 1.1 (0.9-1.6) Triglycerides (0-200) mg/dL Cholesterol (50-200) mg/dL LDL Cholesterol, Calc (60-180) mg/dL VLDL Cholesterol (5-55) mg/dL HDL Cholesterol (40-60) mg/dL Cholesterol/HDL Ratio (3.3-6.0) TSH 3rd Generation 1.07 (0.36-3.74) uIU/mL Urine Color Urine Appearance Urine pH (5.0-8.0) Ur Specific Edwards (1.001-1.035) Urine Protein (NEGATIVE) mg/dL Urine Glucose (UA) (NEGATIVE) mg/dL Urine Ketones (NEGATIVE) mg/dL Urine Occult Blood (NEGATIVE) Urine Nitrite (NEGATIVE) Urine Bilirubin (NEGATIVE) Urine Urobilinogen (<2.0) EU/dL Ur Leukocyte Esterase (NEGATIVE) Urine Opiates Screen (NEGATIVE) Ur Oxycodone Screen (NEGATIVE) Urine Methadone Screen (NEGATIVE) Ur Barbiturates Screen (NEGATIVE) Ur Phencyclidine Scrn (NEGATIVE) Ur Amphetamine Screen (NEGATIVE) U Methamphetamines Scrn (NEGATIVE) U Benzodiazepines Scrn (NEGATIVE) U Cocaine Metab Screen (NEGATIVE) U Marijuana (THC) Screen (NEGATIVE) Ethyl Alcohol < 3.0 mg/dL 01/22/19 01/22/19 01/22/19 Range/Units 15:00 15:00 15:10 Sodium (136-148) mmol/L Potassium (3.5-5.1) mmol/L Chloride (98-107) mmol/L Carbon Dioxide (21.0-32.0) mmol/L BUN (7.0-18.0) mg/dL Creatinine (0.8-1.3) mg/dL Est Cr Clr Drug Dosing Estimated GFR (MDRD) ml/min Glucose (74-106) mg/dL Hemoglobin A1c (4.5-6.2) % Calcium (8.5-10.1) mg/dL Total Bilirubin (0.2-1.0) mg/dL AST (15-37) IU/L ALT (14-63) IU/L Alkaline Phosphatase (46-116) U/L Ammonia (19-54) ug/dL Troponin I < 0.050 (0.000-0.056) ng/mL Total Protein (6.4-8.2) g/dL Albumin (3.4-5.0) g/dL Globulin (2.6-4.0) g/dL Albumin/Globulin Ratio (0.9-1.6) Triglycerides (0-200) mg/dL Cholesterol (50-200) mg/dL LDL Cholesterol, Calc (60-180) mg/dL VLDL Cholesterol (5-55) mg/dL HDL Cholesterol (40-60) mg/dL Cholesterol/HDL Ratio (3.3-6.0) TSH 3rd Generation (0.36-3.74) uIU/mL Urine Color YELLOW Urine Appearance CLEAR Urine pH 6.0 (5.0-8.0) Ur Specific Edwards 1.025 (1.001-1.035) Urine Protein NEGATIVE (NEGATIVE) mg/dL Urine Glucose (UA) NEGATIVE (NEGATIVE) mg/dL Urine Ketones NEGATIVE (NEGATIVE) mg/dL Urine Occult Blood NEGATIVE (NEGATIVE) Urine Nitrite NEGATIVE (NEGATIVE) Urine Bilirubin NEGATIVE (NEGATIVE) Urine Urobilinogen 0.2 (<2.0) EU/dL Ur Leukocyte Esterase NEGATIVE (NEGATIVE) Urine Opiates Screen NEGATIVE (NEGATIVE) Ur Oxycodone Screen NEGATIVE (NEGATIVE) Urine Methadone Screen NEGATIVE (NEGATIVE) Ur Barbiturates Screen NEGATIVE (NEGATIVE) Ur Phencyclidine Scrn NEGATIVE (NEGATIVE) Ur Amphetamine Screen NEGATIVE (NEGATIVE) U Methamphetamines Scrn NEGATIVE (NEGATIVE) U Benzodiazepines Scrn NEGATIVE (NEGATIVE) U Cocaine Metab Screen NEGATIVE (NEGATIVE) U Marijuana (THC) Screen NEGATIVE (NEGATIVE) Ethyl Alcohol mg/dL 01/22/19 01/23/19 Range/Units 18:10 05:35 Sodium (136-148) mmol/L Potassium (3.5-5.1) mmol/L Chloride (98-107) mmol/L Carbon Dioxide (21.0-32.0) mmol/L BUN (7.0-18.0) mg/dL Creatinine (0.8-1.3) mg/dL Est Cr Clr Drug Dosing Estimated GFR (MDRD) ml/min Glucose (74-106) mg/dL Hemoglobin A1c (4.5-6.2) % Calcium (8.5-10.1) mg/dL Total Bilirubin (0.2-1.0) mg/dL AST (15-37) IU/L ALT (14-63) IU/L Alkaline Phosphatase (46-116) U/L Ammonia (19-54) ug/dL Troponin I < 0.050 (0.000-0.056) ng/mL Total Protein (6.4-8.2) g/dL Albumin (3.4-5.0) g/dL Globulin (2.6-4.0) g/dL Albumin/Globulin Ratio (0.9-1.6) Triglycerides 136 (0-200) mg/dL Cholesterol 176 (50-200) mg/dL LDL Cholesterol, Calc 96 (60-180) mg/dL VLDL Cholesterol 27 (5-55) mg/dL HDL Cholesterol 53 (40-60) mg/dL Cholesterol/HDL Ratio 3.3 (3.3-6.0) TSH 3rd Generation (0.36-3.74) uIU/mL Urine Color Urine Appearance Urine pH (5.0-8.0) Ur Specific [place] (1.001-1.035) Urine Protein (NEGATIVE) mg/dL Urine Glucose (UA) (NEGATIVE) mg/dL Urine Ketones (NEGATIVE) mg/dL Urine Occult Blood (NEGATIVE) Urine Nitrite (NEGATIVE) Urine Bilirubin (NEGATIVE) Urine Urobilinogen (<2.0) EU/dL Ur Leukocyte Esterase (NEGATIVE) Urine Opiates Screen (NEGATIVE) Ur Oxycodone Screen (NEGATIVE) Urine Methadone Screen (NEGATIVE) Ur Barbiturates Screen (NEGATIVE) Ur Phencyclidine Scrn (NEGATIVE) Ur Amphetamine Screen (NEGATIVE) U Methamphetamines Scrn (NEGATIVE) U Benzodiazepines Scrn (NEGATIVE) U Cocaine Metab Screen (NEGATIVE) U Marijuana (THC) Screen (NEGATIVE) Ethyl Alcohol mg/dL TOMMY Results - Last 24 hrs: Microbiology 01/22/19 11:55 Aerobic Blood Culture - Preliminary Blood - Venous - Lab Draw NO GROWTH AFTER 1 DAY Anaerobic Blood Culture - Preliminary NO GROWTH AFTER 1 DAY 01/22/19 11:48 Aerobic Blood Culture - Preliminary Blood - Venous NO GROWTH AFTER 1 DAY Anaerobic Blood Culture - Preliminary NO GROWTH AFTER 1 DAY Med Orders - Current: Current Medications Acetaminophen (Tylenol) 650 mg PO Q6H PRN PRN Reason: Pain Last Admin: 01/23/19 07:38 Dose: 650 mg Albuterol/Ipratropium (Duoneb 3.0-0.5 Mg/3 Ml) 3 ml NEB Q4HRRT PRN PRN Reason: Shortness Of Breath/wheezing Aspirin (Aspirin) 81 mg PO DAILY [facility] Last Admin: 01/23/19 08:11 Dose: 81 mg Fish Oil (Fish Oil) 1 gm PO DAILY JUAN Last Admin: 01/23/19 08:11 Dose: 1 gm Labetalol HCl (Normodyne) 10 mg IVPUSH Q6H PRN; Protocol PRN Reason: Hypertension Sodium Chloride (Saline Flush) 10 ml FLUSH ASDIRECTED PRN PRN Reason: Keep Vein Open Sodium Chloride (Saline Flush) 2.5 ml FLUSH ASDIRECTED PRN PRN Reason: Keep Vein Open Last Admin: 01/22/19 12:21 Dose: 2.5 ml Sodium Chloride (Saline Flush) 10 ml FLUSH ASDIRECTED PRN PRN Reason: Keep Vein Open Sodium Chloride (Saline Flush) 2.5 ml FLUSH ASDIRECTED PRN PRN Reason: Keep Vein Open Last Admin: 01/22/19 12:21 Dose: 2.5 ml Sodium Chloride (Normal Saline) 10 ml IV ASDIRECTED PRN PRN Reason: IV Use Discontinued Medications Aspirin (Aspirin) 324 mg PO ONETIME ONE Stop: 01/22/19 11:45 Last Admin: 01/22/19 12:20 Dose: 324 mg Atorvastatin Calcium (Lipitor) 40 mg PO BEDTIME JUAN Ibuprofen (Motrin) 200 mg PO Q6H PRN PRN Reason: Pain (mild 1-3) Tramadol HCl (Ultram) 50 mg PO ONETIME ONE Stop: 01/22/19 19:11 Last Admin: 01/23/19 06:39 Dose: Not Given Tramadol HCl (Ultram) 50 mg PO ONETIME ONE Stop: 01/23/19 05:49 Last Admin: 01/23/19 06:37 Dose: 50 mg
[2019-01-23] MEDS ORDERED: Ibuprofen 400 MG Tab PO ONE (12:50)
--- NOTE | 2019-01-23 14:47 | PCM.CONS ---
H&P History of Present Illness - General Date of Service: 01/23/19 Admit Problem/Dx: Admission Diagnosis/Problem Admission Diagnosis/Problem Altered mental status - History of Present Illness Initial Comments - Free Text/Narative: Yesterday, he presented to the ED with a coworker with confusion. Mr. Fierro recalls waking up in the morning with a mild headache and getting ready for work. The next thing he recalls, he was in the ED. A coworker had noted that he didnt show up for work and called Mr. Fierro who told him he was going to the ED. His coworker found him confused in the parking lot and got him to the ED. In ED, he was found to have confusion as to why he was in ED but was oriented. No focal deficits were noted with NIHSS of 1. Labs CBC, CMP, TSH, UA, Utox, Hgb A1c, troponin X 3, lipase and ammonia were notable for elevated ammonia of 126 with normal liver enzyme, o/w unremarkable. LDL was 96. CT was normal. He reports h/o HTN. His daughter is a health care provider and prescribes him medication. He lives in [place], here in [place] for work. He smokes occasionally. ETOH on special occasions. Headache Pain Score (Numeric/FACES): 4 - Related Data Allergies/Adverse Reactions: Allergies Allergy/AdvReac Type Severity Reaction Status Date / Time atorvastatin AdvReac Muscle Verified 01/22/19 15:07 Aches Home Medications: Home Meds Acetaminophen/Caffeine [Excedrin Tension Headache Cplt] 1 tab PO . NEEDED PRN 01/22/19 [History] Aspirin 81 mg PO DAILY 01/22/19 [History] Multivitamin [Daily Carina] 1 tab PO DAILY 01/22/19 [History] Past Medical History - Past Health History Medical/Surgical History: Denies Medical/Surgical History Cardiovascular History: Reports: Hypertension - Infectious Disease History Infectious Disease History: Reports: Chicken Pox - Past Surgical History GI Surgical History: Reports: Cholecystectomy Social & Family History - Family History Family Medical History: Noncontributory - Tobacco Use Smoking Status *Q: Current Every Day Smoker Years of Tobacco use: 1 Packs/Tins Daily: 0.3 - Recreational Drug Use Recreational Drug Use: No H&P Review of Systems - Review of Systems: Review Of Systems: See Below General: Reports: No Symptoms HEENT: Reports: No Symptoms Pulmonary: Reports: No Symptoms Cardiovascular: Reports: No Symptoms Gastrointestinal: Reports: No Symptoms Genitourinary: Reports: No Symptoms Skin: Reports: No Symptoms Neurological: Reports: Headache Exam - Exam Exam: See Below - Vital Signs Vital Signs: Last Vital Signs Temp 36.3 C 01/23/19 07:42 Pulse 59 L 01/23/19 07:42 Resp 19 01/23/19 07:42 BP 108/58 L 01/23/19 07:42 Pulse Ox 96 01/23/19 07:42 Weight: 120.293 kg - Exam Physical Exam Comments:: Constitutional: No acute distress Psychiatric: Mood/Affect: normal/appropriate Neurological: Mental Status: Japanese is not marshall language, but able communicate effectively. I did have to repeat instruction with different phrasing a few time.s General: Normal activity, good hygiene, appropriate appearance. Level of consciousness: Awake, alert. Orientation: Oriented to person, place, time and situation. Concentration/Attention Span: Normal. Spells world forward and backward correctly. Comprehension/Praxis: Able to perform a three step command. Fund of Knowledge/memory: Adequate recent and remote recall except during episode of confusion. Recall 2/3 word. Language: Fluent and articulate without evidence of aphasia or dysarthria. Thought Content: Normal. Insight/Judgement: Normal. Cranial Nerves: Pupils equally round and reactive to light. Visual nowak full to confrontation. Gaze conjugate, EOMI. Sensation intact and symmetric to light touch. Facial strength is full and symmetric. Palate elevates symmetrically. Normal shrug bilaterally. Tongue protrudes midline Motor: Normal tone in all groups. No drift. Power is 5/5 throughout proximal and distal muscles. Sensation: Sensation is intact to temp vibratory sense Deep tendon reflexes: Normoactive throughout. Coordination: Finger to nose, heel to limon are intact. Gait: Normal casual gait. Normal tandem Eyes: non icteric, Mouth: moist mucus membranes Musculoskeletal: non tender Skin: no visible rash - Patient Data Lab Results Last 24 hrs: Laboratory Results - last 24 hr 01/22/19 01/22/19 01/22/19 Range/Units 15:00 15:00 15:10 Troponin I < 0.050 (0.000-0.056) ng/mL Triglycerides (0-200) mg/dL Cholesterol (50-200) mg/dL LDL Cholesterol, Calc (60-180) mg/dL VLDL Cholesterol (5-55) mg/dL HDL Cholesterol (40-60) mg/dL Cholesterol/HDL Ratio (3.3-6.0) Urine Color YELLOW Urine Appearance CLEAR Urine pH 6.0 (5.0-8.0) Ur Specific [place] 1.025 (1.001-1.035) Urine Protein NEGATIVE (NEGATIVE) mg/dL Urine Glucose (UA) NEGATIVE (NEGATIVE) mg/dL Urine Ketones NEGATIVE (NEGATIVE) mg/dL Urine Occult Blood NEGATIVE (NEGATIVE) Urine Nitrite NEGATIVE (NEGATIVE) Urine Bilirubin NEGATIVE (NEGATIVE) Urine Urobilinogen 0.2 (<2.0) EU/dL Ur Leukocyte Esterase NEGATIVE (NEGATIVE) Urine Opiates Screen NEGATIVE (NEGATIVE) Ur Oxycodone Screen NEGATIVE (NEGATIVE) Urine Methadone Screen NEGATIVE (NEGATIVE) Ur Barbiturates Screen NEGATIVE (NEGATIVE) Ur Phencyclidine Scrn NEGATIVE (NEGATIVE) Ur Amphetamine Screen NEGATIVE (NEGATIVE) U Methamphetamines Scrn NEGATIVE (NEGATIVE) U Benzodiazepines Scrn NEGATIVE (NEGATIVE) U Cocaine Metab Screen NEGATIVE (NEGATIVE) U Marijuana (THC) Screen NEGATIVE (NEGATIVE) 01/22/19 01/23/19 Range/Units 18:10 05:35 Troponin I < 0.050 (0.000-0.056) ng/mL Triglycerides 136 (0-200) mg/dL Cholesterol 176 (50-200) mg/dL LDL Cholesterol, Calc 96 (60-180) mg/dL VLDL Cholesterol 27 (5-55) mg/dL HDL Cholesterol 53 (40-60) mg/dL Cholesterol/HDL Ratio 3.3 (3.3-6.0) Urine Color Urine Appearance Urine pH (5.0-8.0) Ur Specific [place] (1.001-1.035) Urine Protein (NEGATIVE) mg/dL Urine Glucose (UA) (NEGATIVE) mg/dL Urine Ketones (NEGATIVE) mg/dL Urine Occult Blood (NEGATIVE) Urine Nitrite (NEGATIVE) Urine Bilirubin (NEGATIVE) Urine Urobilinogen (<2.0) EU/dL Ur Leukocyte Esterase (NEGATIVE) Urine Opiates Screen (NEGATIVE) Ur Oxycodone Screen (NEGATIVE) Urine Methadone Screen (NEGATIVE) Ur Barbiturates Screen (NEGATIVE) Ur Phencyclidine Scrn (NEGATIVE) Ur Amphetamine Screen (NEGATIVE) U Methamphetamines Scrn (NEGATIVE) U Benzodiazepines Scrn (NEGATIVE) U Cocaine Metab Screen (NEGATIVE) U Marijuana (THC) Screen (NEGATIVE) Result Diagrams: 01/22/19 11:11 01/22/19 11:11 Angelo Results Last 24 hrs: Microbiology 01/22/19 11:55 Aerobic Blood Culture - Preliminary Blood - Venous - Lab Draw NO GROWTH AFTER 1 DAY Anaerobic Blood Culture - Preliminary NO GROWTH AFTER 1 DAY 01/22/19 11:48 Aerobic Blood Culture - Preliminary Blood - Venous NO GROWTH AFTER 1 DAY Anaerobic Blood Culture - Preliminary NO GROWTH AFTER 1 DAY Consult PN Assessment/Plan (1) Altered mental status SNOMED Code(s): 860563944 Code(s): R41.82 - ALTERED MENTAL STATUS, UNSPECIFIED Qualifiers: Altered mental status type: unspecified Qualified Code(s): R41.82 - Altered mental status, unspecified Assessment:: Altered mental status, spontaneous resolved: Etiology unclear. Evaluation notable for ammonia, otherwise unremarkable. Altered mental status without focal deficits is atypical presentation for focal CHILD ATTENDANT ischemia, i.e TIA/stroke. MRI showed small vessel changes otherwise normal okay for discharge. I recommend he establish with a PCP. Problem List Initiated/Reviewed/Updated: Yes
--- NOTE | 2019-01-24 10:27 | MR ---
EXAM DATE: 01/22/19 PATIENT'S AGE: 58 Patient: DEBBY LEGGETT Facility: [facility] Site Site : [id number] Study: MRI-Head Angio [id number]/4/2019 10:41:43 AM Ordering Physician: KINGSLEY VALDOVINOS Final Report: INDICATION: 58-year-old male. Altered mental status. TECHNIQUE: Sagittal T1 axial FLAIR T2 diffusion-weighted and susceptibility weighted images of the brain. [id number] magnetic resonance at the [place] arteries. COMPARISON: Brain dated 01/22/2019. FINDINGS: MRI brain: The lateral 3rd and 4th ventricles are normal in size and shape. There are no areas of diffusion restriction to suggest acute ischemic infarction there is no mass effect. There is no evidence of intracranial hemorrhage. There are a few tiny areas of FLAIR and T2 signal hyperintensity within subcortical cerebral white matter. These findings are likely due to chronic microvascular ischemia but are nonspecific. The brainstem and cerebellum appear normal. The orbits sella turcica paranasal sinuses and skullbase are unremarkable. MRA [place]: The intracranial segments of the internal carotid arteries and basilar artery appear widely patent. There is hypoplastic right A-1 segment and origin of the right posterior cerebral artery. The anterior middle and posterior cerebral arteries and proximal branches are otherwise unremarkable. Distal left vertebral artery is hypoplastic. The an no evidence of an aneurysm over 3 mm. No high-flow arteriovenous malformation. No high-grade intracranial stenosis. IMPRESSION: 1. There is no evidence of acute infarction, intracranial hemorrhage or mass. 2. Mild chronic microvascular ischemic changes within the cerebral white matter. 3. No large vessel occlusion or high-grade stenosis or aneurysm is seen. Congenital variant arterial anatomy as described. Dictated by Nik Danielson MD @ 01/23/2019 12:05:46 PM Dictated by: Nik Danielson MD @ 01/23/2019 12:06:17 Signed by: Nik Danielson MD @01/23/2019 12:06:17 PM (Electronic Signature) Report Signed by Proxy. [facility]
--- NOTE | 2019-01-25 13:18 | ECHO ---
EXAM DATE: 01/22/19 PATIENT'S AGE: 58 The echocardiogram report can be seen in this patient's EMR (Electronic Medical Record) in the Reports section. This report has also been scanned into PACs. FELIPE
== END 2019-01-23 13:47 | disposition home or self-care (01) ==
LOC: MW.ED 10:45 → MW.MS 13:18
PROVIDERS: ADMIT Student in an Organized Health Care Education/Training Program; ATTEND Student in an Organized Health Care Education/Training Program
DX: R41.82 Altered mental status, unspecified (principal); I10 Essential (primary) hypertension; R79.89 Other specified abnormal findings of blood chemistry
CPT/HCPCS: 36415; 70450; 70544; 70551; 71045; 73030; 80053; 80061; 80305; 80320; 81003; 82140; 83036; 83605; 83690; 84443; 84484; 85025; 85610; 85730; 87040; 93005; 93306; 99285; A9270; G0378; G0480